=== PATIENT | female | born 1990 | race Caucasian/White ===

== ENCOUNTER 2017-04-30 09:25 | Inpatient (IN) | payer OTHER ==
[2017-04-30] VITALS (41 sets, daily range): BP systolic 100–141; BP diastolic 49–96
[~2017-04-30] VITALS: Ht 149.9 cm; Wt 60.8 kg
[2017-04-30 09:25] LABS: URINE BILIRUBIN - DIPSTICK NEGATIVE (NEGATIVE); URINE BLOOD DIPSTICK NEGATIVE (NEGATIVE); URINE CLARITY SLIGHT CLOUDY; URINE COLOR YELLOW; URINE GLUCOSE - DIPSTICK NEGATIVE (NEGATIVE); URINE KETONE NEGATIVE (NEGATIVE); URINE NITRITE - DIPSTICK NEGATIVE (Negative); URINE PROTEIN - DIPSTICK TRACE mg/dL (NEG-TRACE); URINE UROBILINOGEN - DIPSTICK 0.2 E.U./dL (0.2)
[~2017-04-30 09:25] MED LIST: AMOXICILLIN500 MG PO; CEPHALEXIN500 MG PO; CIPRO500 MG PO; KEFLEX500 MG PO; LORTAB 5/3255 MG PO; NAPROSYN500 MG PO; NO; NO HOME MEDS; PRE-NATAL PO; TAM75CAP PO; ULTRAM50 MG OR; ZOFRAN4 MG/TAB PO
[2017-04-30 09:26] LABS: URINE LEUK ESTERASE SMALL (NEGATIVE)
[2017-04-30 09:28] LABS: BARBITURATES NEGATIVE (NEGATIVE); COCAINE NEGATIVE (NEGATIVE); METHADONE NEGATIVE (NEGATIVE); OXCYCODONE NEGATIVE (NEGATIVE); TETRAHYDROCANNABIONOL POSITIVE (NEGATIVE); TRICYLIC ANTIDEPRESSANTS NEGATIVE (NEGATIVE)
[2017-04-30 09:34] LABS: URINE SQUAMOUS EPITHELIAL CELL MANY EPI/hpf (0-FEW)
[2017-04-30 09:35] LABS: URINE BACTERIA MODERATE hpf; URINE RBC 0-2 RBC/hpf (0-5); URINE TRICHOMONAS MODERATE hpf
[2017-04-30 11:31] LABS: HEMATOCRIT 38.2 % (37.0-47.0); IMMATURE GRANULOCYTES 0.5 % (0.0-1.0); MEAN CELL VOLUME 93.2 fL CALC (80.0-100.0); MEAN CORPUSCULAR HGB 31.7 pG CALC (26.0-32.0); NEUT# 8.28 thou/uL (2.00-7.15); RED BLOOD COUNT 4.1 mill/uL (4.20-5.60)
[2017-04-30 11:43] LABS: ALBUMIN 3.4 g/dL (3.2-5.0); ALKALINE PHOSPHATASE 176 u/l (38-126); ANION GAP 11 (6-22 (CALC)); BILIRUBIN, TOTAL 0.3 mg/dL (0.0-1.4); BUN 11 mg/dL (7-17); BUN/CREATININE RATIO 23 (12-20 (CALC)); CALCIUM 8.9 mg/dL (8.4-10.2); CARBON DIOXIDE 20 mmol/l (22-30); CHLORIDE 108 mmol/l (95-108); CREATININE 0.5 mg/dL (0.5-1.0); GFR > 60 ML/MIN (>=60 (CALC)); GFR FOR AFR.AMER. > 60 ML/MIN (>=60 (CALC)); GLUCOSE 73 mg/dL (65-105); POTASSIUM 4.8 mmol/l (3.5-5.1); SGOT/AST 23 u/l (14-36); SGPT/ALT 28 u/l (9-52); SODIUM 134 mmol/l (137-146); TOTAL PROTEIN 6.5 g/dL (6.3-8.2)
[2017-05-01 05:41] LABS: HEMATOCRIT 34.5 % (37.0-47.0); HEMOGLOBIN 11.9 g/dl (12.0-16.0); IMMATURE GRANULOCYTES 1.1 % (0.0-1.0); MEAN CELL VOLUME 93.2 fL CALC (80.0-100.0); MEAN CORPUSCULAR HGB 32.2 pG CALC (26.0-32.0); MEAN CORPUSCULAR HGB CONC 34.5 g/L CALC (32.0-36.0); NEUT# 12.29 thou/uL (2.00-7.15); RED BLOOD COUNT 3.7 mill/uL (4.20-5.60); RED CELL DISTRI WIDTH 12.9 % (11.5-15.5)
[2017-05-01 08:37] VITALS: BP 122/57
[2017-05-01 17:01] VITALS: BP 115/65
[2017-05-01 19:07] VITALS: BP 110/55
[2017-05-02 05:39] VITALS: BP 122/87
[2017-05-02] MEDS ORDERED: IBUPROFEN600 MG PO (07:46)
== END 2017-05-02 12:17 | disposition home or self-care (01) | DRG 775 ==
LOC: OB 09:25 → OBOP 09:25 → OB 11:00
PROVIDERS: ADMIT Obstetrics & Gynecology; ATTEND Obstetrics & Gynecology
PROC: 10E0XZZ Delivery of Products of Conception, External Approach (ICD-10-PCS; principal; 2017-04-30)
PROC: 10907ZC Drainage of Amniotic Fluid, Therapeutic from Products of Conception, Via Natural or Artificial Opening (ICD-10-PCS; 2017-04-30)
DX: O99.334 Smoking (tobacco) complicating childbirth (principal); F17.210 Nicotine dependence, cigarettes, uncomplicated; Z3A.38 38 weeks gestation of pregnancy; Z37.0 Single live birth
CPT/HCPCS: J2540

== ENCOUNTER 2017-11-22 16:56 | Emergency (ER) | payer OTHER ==
[~2017-11-22] VITALS: Ht 149.9 cm; Wt 51.0 kg
[~2017-11-22 16:56] MED LIST changes: +IBUPROFEN600 MG PO
[2017-11-22] MEDS ORDERED: CORTISPORIN OTI10 ML AD (17:46)
[2017-11-22 17:55] VITALS: BP 112/60
== END 2017-11-22 17:55 | disposition home or self-care (01) | DRG 156 ==
LOC: ED 16:56
DX: H60.91 Unspecified otitis externa, right ear (principal); H92.01 Otalgia, right ear

== ENCOUNTER 2018-01-22 20:04 | Emergency (ER) | payer OTHER ==
[~2018-01-22] VITALS: Ht 149.9 cm; Wt 50.4 kg
[~2018-01-22 20:04] MED LIST changes: +CORTISPORIN OTI10 ML AD
[2018-01-22 20:57] LABS: INFLUENZA A NONE DETECTED (NONE DETECT); INFLUENZA B NONE DETECTED (NONE DETECT)
[2018-01-22] MEDS ORDERED: CEPHALEXIN500 MG PO (21:09)
[2018-01-22 21:21] VITALS: BP 118/67
== END 2018-01-22 21:21 | disposition home or self-care (01) | DRG 781 ==
LOC: ED 20:04
PROVIDERS: Emergency Medicine
DX: O98.512 Other viral diseases complicating pregnancy, second trimester (principal); R50.9 Fever, unspecified; J06.9 Acute upper respiratory infection, unspecified; Z3A.18 18 weeks gestation of pregnancy; R05 Cough; R09.81 Nasal congestion

== ENCOUNTER 2023-01-06 08:13 | Emergency (ER) | payer SELFPAY ==
[~2023-01-06] VITALS: Ht 149.9 cm; Wt 43.5 kg
[2023-01-06 08:29] VITALS: BP 103/66
[2023-01-06 09:00] VITALS: BP 107/59
[2023-01-06 09:30] VITALS: BP 83/50
[2023-01-06 10:00] VITALS: BP 97/58
== END 2023-01-06 10:21 | disposition home or self-care (01) | DRG 556 ==
LOC: ED 08:13
DX: M79.672 Pain in left foot (principal)

== ENCOUNTER 2023-05-01 19:30 | Observation (INO) | payer SELFPAY ==
[~2023-05-01] VITALS: Ht 149.9 cm; Wt 40.0 kg
[2023-05-01 19:41] VITALS: BP 117/61
[2023-05-01 19:45] VITALS: BP 109/61
[2023-05-01 20:08] LABS: URINE BILIRUBIN - DIPSTICK NEGATIVE (NEGATIVE); URINE BLOOD DIPSTICK SMALL (NEGATIVE); URINE COLOR YELLOW; URINE GLUCOSE - DIPSTICK NEGATIVE (NEGATIVE); URINE KETONE NEGATIVE (NEGATIVE); URINE PH 6.5 (4.5-8.0); URINE PROTEIN - DIPSTICK 30 mg/dL (NEG-TRACE); URINE SPECIFIC GRAVITY 1.015
[2023-05-01 20:09] LABS: URINE LEUK ESTERASE MODERATE (NEGATIVE); URINE NITRITE - DIPSTICK NEGATIVE (Negative)
[2023-05-01 20:12] LABS: HCG SERUM/URINE (NEG/POS) NEGATIVE (NEGATIVE)
[2023-05-01 20:12] LABS: BASO% 0.1 % (0-3); EOS% 0.1 % (0-8); HEMATOCRIT 35.1 % (37.0-47.0); HEMOGLOBIN 11.8 g/dl (12.0-16.0); IMMATURE GRANULOCYTES 0.3 % (0.0-5.0); MEAN CELL VOLUME 89.3 fL CALC (80.0-100.0); MEAN CORPUSCULAR HGB CONC 33.6 g/dL CAL (32.0-36.0); MONO% 10.6 % (2-13); NEUT# 10.46 thou/uL (2.00-7.15); NEUT% 68.9 % (42-76); RED BLOOD COUNT 3.93 mill/uL (4.20-5.60); RED CELL DISTRI WIDTH 13.5 % (11.5-15.5)
[2023-05-01 20:14] LABS: URINE BACTERIA MODERATE hpf; URINE SQUAMOUS EPITHELIAL CELL MANY EPI/hpf (0-FEW)
[2023-05-01 20:22] LABS: ALKALINE PHOSPHATASE 99 u/l (38-126); AMYLASE 58 u/l (30-110); BUN 9 mg/dL (7-17); BUN/CREATININE RATIO 9 (12-20 (CALC)); CHLORIDE 102 mmol/l (95-108); GFR FOR AFR.AMER. > 60 ML/MIN (>=60 (CALC)); GFR OTHER RACES > 60 ML/MIN (>=60 (CALC)); LIPASE 82 u/l (23-300); SGOT/AST 23 u/l (14-36); SODIUM 138 mmol/l (137-146); TOTAL PROTEIN 7.8 g/dL (6.3-8.2)
[2023-05-01 20:23] LABS: ALBUMIN 4.2 g/dL (3.2-5.0); ANION GAP 14 (6-22 (CALC)); BILIRUBIN, TOTAL 0.8 mg/dL (0.02-1.3); CARBON DIOXIDE 26 mmol/l (22-30); POTASSIUM 3.7 mmol/l (3.5-5.1)
[2023-05-01 23:29] VITALS: BP 126/96
[2023-05-02 04:56] VITALS: BP 90/48
[2023-05-02 05:05] VITALS: BP 88/42
[2023-05-02 06:18] VITALS: BP 90/62
[2023-05-02 07:36] LABS: BASO% 0.1 % (0-3); EOS% 0.6 % (0-8); HEMATOCRIT 34.7 % (37.0-47.0); HEMOGLOBIN 11.1 g/dl (12.0-16.0); IMMATURE GRANULOCYTES 0.4 % (0.0-5.0); LYMPH% 15.8 % (15-41); MEAN CELL VOLUME 92.8 fL CALC (80.0-100.0); MEAN CORPUSCULAR HGB 29.7 pG CALC (26.0-32.0); MONO% 9.7 % (2-13); NEUT# 10.28 thou/uL (2.00-7.15); NEUT% 73.4 % (42-76); RED BLOOD COUNT 3.74 mill/uL (4.20-5.60); RED CELL DISTRI WIDTH 13.6 % (11.5-15.5)
[2023-05-02 08:25] LABS: ALBUMIN 3.4 g/dL (3.2-5.0); ALKALINE PHOSPHATASE 94 u/l (38-126); ANION GAP 11 (6-22 (CALC)); BUN 15 mg/dL (7-17); BUN/CREATININE RATIO 21 (12-20 (CALC)); CARBON DIOXIDE 24 mmol/l (22-30); CHLORIDE 108 mmol/l (95-108); CREATININE 0.7 mg/dL (0.5-1.0); GFR FOR AFR.AMER. > 60 ML/MIN (>=60 (CALC)); GFR OTHER RACES > 60 ML/MIN (>=60 (CALC)); POTASSIUM 3.7 mmol/l (3.5-5.1); SGOT/AST 22 u/l (14-36); SODIUM 139 mmol/l (137-146); TOTAL PROTEIN 6.5 g/dL (6.3-8.2)
[2023-05-02 08:34] LABS: BILIRUBIN, TOTAL 0.3 mg/dL (0.02-1.3)
[2023-05-02 15:25] VITALS: BP 79/39; BP 86/48; BP 93/48
[2023-05-02 19:29] VITALS: BP 110/62
[2023-05-03 04:40] VITALS: BP 89/44
[2023-05-03 05:53] VITALS: BP 118/62
[2023-05-03 07:28] VITALS: BP 102/53
[2023-05-03 15:30] VITALS: BP 116/70
[2023-05-03 19:22] VITALS: BP 109/59
[2023-05-04 04:12] VITALS: BP 100/48
[2023-05-04 05:20] LABS: BASO% 0.3 % (0-3); EOS% 1.2 % (0-8); HEMATOCRIT 30.4 % (37.0-47.0); HEMOGLOBIN 9.7 g/dl (12.0-16.0); IMMATURE GRANULOCYTES 0.8 % (0.0-5.0); LYMPH% 34.2 % (15-41); MEAN CELL VOLUME 91.3 fL CALC (80.0-100.0); MEAN CORPUSCULAR HGB 29.1 pG CALC (26.0-32.0); MEAN CORPUSCULAR HGB CONC 31.9 g/dL CAL (32.0-36.0); MONO% 8.9 % (2-13); NEUT# 4.05 thou/uL (2.00-7.15); NEUT% 54.6 % (42-76); RED BLOOD COUNT 3.33 mill/uL (4.20-5.60); RED CELL DISTRI WIDTH 13.7 % (11.5-15.5)
[2023-05-04 05:38] LABS: ALKALINE PHOSPHATASE 90 u/l (38-126); ANION GAP 8 (6-22 (CALC)); BUN 6 mg/dL (7-17); BUN/CREATININE RATIO 9 (12-20 (CALC)); CARBON DIOXIDE 26 mmol/l (22-30); CHLORIDE 107 mmol/l (95-108); CREATININE 0.6 mg/dL (0.5-1.0); GFR FOR AFR.AMER. > 60 ML/MIN (>=60 (CALC)); GFR OTHER RACES > 60 ML/MIN (>=60 (CALC)); SGOT/AST 15 u/l (14-36); SODIUM 138 mmol/l (137-146); TOTAL PROTEIN 5.9 g/dL (6.3-8.2)
[2023-05-04 08:08] VITALS: BP 102/55
[2023-05-04] MEDS ORDERED: CIPROFLOXACN500 MG PO (10:55)
== END 2023-05-04 12:24 | disposition home or self-care (01) | DRG 690 ==
LOC: ED 19:30 → ED-I 21:50 → ED 22:01 → MS2 22:02
PROVIDERS: Emergency Medicine; Nurse Practitioner Family; ADMIT Internal Medicine; ATTEND Internal Medicine
DX: N10 Acute pyelonephritis (principal); B96.20 Unspecified Escherichia coli [E. coli] as the cause of diseases classified elsewhere; F17.200 Nicotine dependence, unspecified, uncomplicated; F19.21 Other psychoactive substance dependence, in remission; Z20.822 Contact with and (suspected) exposure to COVID-19
CPT/HCPCS: G0378; Q9967

== ENCOUNTER 2023-06-01 07:50 | Emergency (ER) | payer SELFPAY ==
[~2023-06-01] VITALS: Ht 149.9 cm; Wt 43.1 kg
[~2023-06-01 07:50] MED LIST changes: +CIPROFLOXACN500 MG PO
[2023-06-01] MEDS ORDERED: MOTRIN400 MG/TAB PO (08:08)
[2023-06-01] MEDS ORDERED: CLINDAMYCIN300 M1 PO (08:08)
[2023-06-01 08:28] VITALS: BP 122/59
== END 2023-06-01 08:25 | disposition home or self-care (01) | DRG 159 ==
LOC: ED 07:50
DX: K08.89 Other specified disorders of teeth and supporting structures (principal); F17.200 Nicotine dependence, unspecified, uncomplicated

== ENCOUNTER 2023-07-01 22:59 | Emergency (ER) | payer SELFPAY ==
[~2023-07-01] VITALS: Ht 149.9 cm; Wt 45.0 kg
[~2023-07-01 22:59] MED LIST changes: +CLINDAMYCIN300 M1 PO; +MOTRIN400 MG/TAB PO
[2023-07-01 23:11] VITALS: BP 115/86
[2023-07-01] MEDS ORDERED: BACTRIM DS1 TAB PO (23:22)
[2023-07-01 23:30] VITALS: BP 111/77
[2023-07-02] VITALS: BP 107/76
[2023-07-02 00:32] VITALS: BP 136/66
== END 2023-07-02 00:24 | disposition home or self-care (01) | DRG 605 ==
LOC: ED 22:59
DX: S70.371A Other superficial bite of right thigh, initial encounter (principal); W54.0XXA Bitten by dog, initial encounter; L73.9 Follicular disorder, unspecified; F17.200 Nicotine dependence, unspecified, uncomplicated